=== PATIENT | female | born 1955 | race Caucasian/White ===

== ENCOUNTER 2020-12-01 09:00 | Emergency (ER) | payer OTHER ==
[~2020-12-01] VITALS: Ht 162.6 cm; Wt 78.0 kg
--- NOTE | 2020-12-01 09:42 | EKG ---
[facility] ED [facility] [address] [place] [id number] Test Date: 2020-12-01 Test Time: 09:32:25 Pat Name: GUEVARA FARFAN Department: Room: Gender: F State Comptroller: CATHY : 1955 Requested By: PETTY KHALIL Order Number: [id number] Reading MD: Fernando Smith Measurements Intervals [place] Rate: 97 P: 131 MT: 124 QRS: 20 QRSD: 100 T: 33 QT: 350 QTc: 449 Interpretive Statements SINUS RHYTHM LEFT ATRIAL ABNORMALITY ABNORMAL ECG RI6.02 No previous ECG available for comparison Electronically Signed On 12-07-2020 13:07:35 CDT by Fernando Smith
--- NOTE | 2020-12-01 09:54 | PHYS DOC ---
Past History Past Medical History: Cancer, Diabetes Past Surgical History: Cancer Surgery, , Hysterectomy Alcohol Use: None Drug Use: None General Adult EDM: Chief Complaint: SHORTNESS OF BREATH HPI: HPI: 65-year-old female presents from her primary care office with shortness of breath. She is Covid positive. Patient was fully vaccinated. Chest x-ray from the doctor's office was reported to have bilateral findings. The patient states that her oxygen was in the high 80s at the office and they thought she might need to be admitted. She tested positive on 19 November. She has had generalized fatigue and body aches. She does not feel feverish. Review of Systems: Review of Systems: Constitutional: Denies fever or chills. Fatigue, body aches Eyes: Denies change in visual acuity HENT: Denies nasal congestion or sore throat Respiratory: Cough with shortness of breath Cardiovascular: Denies chest pain or edema GI: Denies abdominal pain, nausea, vomiting, bloody stools or diarrhea : Denies dysuria Musculoskeletal: Denies back pain or joint pain Integument: Denies rash Neurologic: Denies headache, focal weakness or sensory changes Endocrine: Denies polyuria or polydipsia Lymphatic: Denies swollen glands Psychiatric: Denies depression or anxiety Allergies: Allergies: Allergies Coded Allergies Type Severity Reaction Last Updated Verified No Known Drug Allergies 06/08/15 No Physical Exam: PE: Constitutional: Well developed, well nourished, no acute distress, non-toxic appearance. [] HENT: Normocephalic, atraumatic, bilateral external ears normal, oropharynx moist, no oral exudates, nose normal. [] Eyes: PERRLA, EOMI, conjunctiva normal, no discharge. [] Neck: Normal range of motion, no tenderness, supple, no stridor. [] Cardiovascular: Heart rate 97, regular rhythm, no murmur [] Lungs & Thorax: Bilateral breath sounds diminished [] Abdomen: Bowel sounds normal, soft, no tenderness, no masses, no pulsatile masses. [] Skin: Warm, dry, no erythema, no rash. [] Back: No tenderness, no CVA tenderness. [] Extremities: No tenderness, no cyanosis, no clubbing, ROM intact, no edema. [] Neurologic: Alert and oriented X 3, normal motor function, normal sensory function, no focal deficits noted. [] Psychologic: Affect normal, judgement normal, mood normal. [] Current Patient Data: Vital Signs: Vital Signs Date Time Temp Pulse Resp B/P (MAP) Pulse Ox O2 Delivery O2 Flow Rate FiO2 12/01/20 09:18 99 16 122/84 (97) 93 Room Air EKG: EKG: [] Radiology/Procedures: Radiology/Procedures: [] Impressions: EXAM: CT CHEST WITHOUT CONTRAST HISTORY: Covid positive COMPARISON: None TECHNIQUE: Helical CT of the chest performed without contrast. Coronal and sagittal reformats were obtained. One or more of the following individualized dose reduction techniques were utilized for this examination: 1. Automated exposure control 2. Adjustment of the mA and/or kV according to patient size 3. Use of iterative reconstruction technique. FINDINGS: Thyroid gland and thoracic inlet: Normal. Heart and great vessels: Heart is normal in size. There are coronary artery calcifications and changes of CABG. No pericardial effusion. The thoracic aorta is normal in caliber. Mild calcified atherosclerosis in the aorta. Mediastinum and tashia: There are prominent mediastinal and hilar lymph nodes, likely reactive. Lungs and pleura: There are peripheral and basilar predominant confluent opacities with cystic or fibrotic changes in the posterior lower lower lobes and left upper lobe. More consolidative and groundglass opacities in the right middle lobe and lingula. There is suspected traction bronchiectasis. Mild paraseptal and centrilobular emphysema. No pleural effusion. Central airways are clear. Chest wall and axillae: There are surgical clips or calcifications in the right breast. No axillary lymphadenopathy. Upper abdomen: There is focal atrophy in the upper pole the left kidney. Left nephrolithiasis. Bones: No acute osseous abnormality. There are changes of median sternotomy. IMPRESSION: Peripheral and basilar predominant confluent opacities throughout the lungs with cystic or fibrotic changes. Imaging findings could be seen with later phase Covid 19 infection. This is superimposed on mild centrilobular and paraseptal emphysema. Electronically signed by: Genet Mohan MD (12/01/2020 10:15 AM) [id number] DICTATED AND SIGNED BY: GENET MOHAN MD DATE: 12/01/20 0955 CC: PETTY KHALIL DO; LOIS SIMONS PA ~MTH0 0 Heart Score: C/O Chest Pain: No Risk Factors: Risk Factors: DM, Current or recent (<one month) smoker, HTN, HLP, family history of CAD, obesity. Risk Scores: Score 0 - 3: 2.5% MACE over next 6 weeks - Discharge Home Score 4 - 6: 20.3% MACE over next 6 weeks - Admit for Clinical Observation Score 7 - 10: 72.7% MACE over next 6 weeks - Early Invasive Strategies Course & Med Decision Making: Course & Med Decision Making Pertinent Labs and Imaging studies reviewed. (See chart for details) The patient's labs are significant for an elevated white count. Her CT shows bilateral infiltrates. See official read for more details. This is very likely to be due to Covid. She does not have a fever. This is unlikely to be bacterial pneumonia. The patient is resting comfortably with 94% oxygen on room air. Notably there is anything further to do in the hospital for the patient. I did discuss her with Dr. Lindo and he agrees she can be discharged. I will give her 5 days of prednisone. She is stable for discharge at this time. [] [place] Disclaimer: Dragxu Disclaimer: This electronic medical record was generated, in whole or in part, using a voice recognition dictation system. Departure Departure: Impression: Primary Impression: Pneumonia due to COVID-19 virus Disposition: HOME / SELF CARE / HOMELESS Condition: STABLE Referrals: LOIS SIMONS (PCP) Additional Instructions: You have been tested for or diagnosed with COVID-19. It is an infection caused by a new type of coronavirus. COVID-19 will cause cold-like or mild flu symptoms in most. It can cause more severe symptoms like problems breathing in some. There is no treatment for COVID-19. The body will clear the infection over time. Self-care will help to ease discomfort. Steps to Take: Self-Care Rest as needed. Healthy habits may help you feel better. Steps include: Choose healthy foods including fruits and vegetables. Drink water throughout the day. Get plenty of sleep each night. If you smoke, try to quit. It may ease breathing. Avoid alcohol. Keep Others Healthy The virus can spread to others. Droplets are released every time you sneeze or cough. The droplets can get into the mouth, nose, or eyes of people near you and lead to infection. To lower the chances of spreading COVID-19 to others: Stay at home until your doctor has said it is safe to leave. If you tested positive this will mean staying isolated until both of the following are true: At least 7 days have passed since the start of illness. You are free of fever for at least 72 hours without the use of medicine. During this time: - Avoid public areas, events, or transportation. Do not return to work or school until your doctor has said it is safe to do so. - Call ahead if you need to go to a medical center. Let them know you may have COVID-19. It will help them guide you where to go. They may also ask you to wear a facemask when you come to the office. - If you call for emergency medical services, let them know you may have COVID- 19. While at home: - Try to avoid close contact with others. Stay about 6 feet away. - If possible, spend most of your time in a separate room from others. - Use a face mask if you will be in close contact with others such as sharing a room or vehicle. - Have someone wipe down common surfaces in the home. Use household health care legal assistant every day on areas like doorknobs, counters, or sinks. - Cough or sneeze into a tissue. Throw the tissue away right after use. If a tissue is not available, cough or sneeze into your elbow. - Wash your hands often. Wash them after sneezing or coughing. Use soap and water and wash for at least 20 seconds. Alcohol based hand high pressure cleaner can be used if soap and water is not available. - Do not prepare food for others. Avoid sharing personal items like forks, spoons, or toothbrushes. - Avoid close contact with pets while you are sick. There is no evidence of the virus passing to pets. This is a safety step until more is known about this virus. Isolation can be frustrating. Social interaction can help. Keep in touch with friends and family through phone and tech options. You can still interact with others in your home, just keep a safe distance of about 6 feet. Follow-up: Your doctors office will check in with you to see if there are any changes in your health. You may be asked to keep track of symptoms to share with them. They will also let you know when you are clear to be in public again. Problems to Look Out For: Contact your doctor if your recovery is not going as you expect. Get emergency care if you have problems such as: - Trouble breathing - Nonstop chest pain or pressure - Changes in awareness, confusion, or problems waking - Lips or face have bluish color - Worsening of symptoms If you think you have an emergency, call for emergency medical services right away. [facility] Prednisone (PREDNISONE) 50 Mg Tablet 1 TAB PO DAILY for COVID 19, #5 TAB Prov: PETTY KHALIL DO 12/01/20 PETTY KHALIL DO Dec 01, 2020 09:54
[2020-12-01 10:04] LABS: BASO # 0.1 x10^3/uL (0.0-0.2); BASO % 1 % (0-3); EOS # 0.1 x10^3/uL (0.0-0.7); EOS % 0 % (0-3); HEMATOCRIT 41.1 % (36.0-47.0); HEMOGLOBIN 13.9 g/dL (12.0-15.5); LYMPH # 1.6 x10^3/uL (1.0-4.8); LYMPH % 8 % (24-48); MEAN CORPUSCULAR HEMOGLOBIN 30 pg (25-35); MEAN CORPUSCULAR HGB CONC 34 g/dL (31-37); MEAN CORPUSCULAR VOLUME 88 fL (79-100); MONO % 10 % (0-9); NEUT # 15.9 x10^3uL (1.8-7.7); NEUT % 81 % (31-73); PLATELET COUNT 584 x10^3/uL (140-400); RED BLOOD COUNT 4.69 x10^6/uL (3.50-5.40); RED CELL DISTRIBUTION WIDTH 13.5 % (11.5-14.5); WHITE BLOOD COUNT 19.7 x10^3/uL (4.0-11.0)
--- NOTE | 2020-12-01 10:17 | RAD ---
EXAM: CT CHEST WITHOUT CONTRAST HISTORY: Covid positive COMPARISON: None TECHNIQUE: Helical CT of the chest performed without contrast. Coronal and sagittal reformats were o btained. One or more of the following individualized dose reduction techniques were utilized for this examinat ion: 1. Automated exposure control 2. Adjustment of the mA and/or kV according to patient size 3. Use of iterative reconstruction technique. FINDINGS: Thyroid gland and thoracic inlet: Normal. Heart and great vessels: Heart is normal in size. There are coronary artery calcifications and change s of CABG. No pericardial effusion. The thoracic aorta is normal in caliber. Mild calcified atheroscl erosis in the aorta. Mediastinum and tashia: There are prominent mediastinal and hilar lymph nodes, likely reactive. Lungs and pleura: There are peripheral and basilar predominant confluent opacities with cystic or fib rotic changes in the posterior lower lower lobes and left upper lobe. More consolidative and groundgl ass opacities in the right middle lobe and lingula. There is suspected traction bronchiectasis. Mild paraseptal and centrilobular emphysema. No pleural effusion. Central airways are clear. Chest wall and axillae: There are surgical clips or calcifications in the right breast. No axillary l ymphadenopathy. Upper abdomen: There is focal atrophy in the upper pole the left kidney. Left nephrolithiasis. Bones: No acute osseous abnormality. There are changes of median sternotomy. IMPRESSION: Peripheral and basilar predominant confluent opacities throughout the lungs with cystic or fibrotic changes. Imaging findings could be seen with later phase Covid 19 infection. This is supe rimposed on mild centrilobular and paraseptal emphysema. Electronically signed by: Genet Mohan MD (12/01/2020 10:15 AM) [id number]
[2020-12-01 10:38] LABS: % LYMPHS 6 % (24-48); % MONOS 11 % (0-10); % SEGS 83 % (35-66); PLT ESTIMATE INCREASED (ADEQUATE)
[2020-12-01 10:56] LABS: CALCIUM 9.4 mg/dL (8.5-10.1); CREATININE 0.7 mg/dL (0.6-1.0); GFR 83.5
[2020-12-01] MEDS ORDERED: PRED50TA PO (10:56)
[2020-12-01 11:00] VITALS: BP 114/76
[2020-12-01 11:01] LABS: ALBUMIN 2.3 g/dL (3.4-5.0); ALBUMIN/GLOBULIN RATIO 0.4 (1.0-1.7); TOTAL BILIRUBIN 0.3 mg/dL (0.2-1.0); TOTAL PROTEIN 8.3 g/dL (6.4-8.2)
== END 2020-12-01 11:25 | disposition home or self-care (01) ==
LOC: ER 09:00
DX: U07.1 COVID-19 (principal); J12.82 Pneumonia due to coronavirus disease 2019; E11.9 Type 2 diabetes mellitus without complications; Z90.710 Acquired absence of both cervix and uterus
CPT/HCPCS: 36415; 71250; 80053; 83605; 84484; 85007; 85025; 87040; 93005; 99285-25